=== PATIENT | male | born 1970 | race Two or more races ===

== ENCOUNTER 2017-05-05 17:48 | Emergency (ER) | payer SELFPAY ==
[~2017-05-05] VITALS: Ht 170.2 cm; Wt 99.9 kg
[2017-05-05 17:50] VITALS: BP 127/83
[2017-05-05] MEDS ORDERED: DEXAMETHASONE 4 MG TABLET PO ONE (18:30)
[2017-05-05] MEDS ORDERED: IBUPROFEN 200 MG TABLET PO ONE (18:30)
== END 2017-05-05 19:13 | disposition home or self-care (01) ==
LOC: ED 18:40
DX: J02.9 Acute pharyngitis, unspecified (principal)
CPT/HCPCS: 87081; 87880; 99284

== ENCOUNTER 2017-05-07 17:16 | Emergency (ER) | payer OTHER ==
[~2017-05-07] VITALS: Ht 170.2 cm; Wt 100.6 kg
[2017-05-07 17:17] VITALS: BP 111/73
[2017-05-07] MEDS ORDERED: HYDROcodone/APAP 5/325 TABLET ONE (17:54)
[2017-05-07] MEDS ORDERED: DEXAMETHASONE 4 MG TABLET ONE (17:54)
[2017-05-07] MEDS ORDERED: DEXAMETHASONE 4 MG TABLET PO ONE (19:00)
[2017-05-07] MEDS ORDERED: HYDROcodone/APAP 5/325 TABLET PO ONE (19:00)
== END 2017-05-07 18:34 | disposition home or self-care (01) ==
LOC: ED 17:52
DX: M54.2 Cervicalgia (principal)
CPT/HCPCS: 99283

== ENCOUNTER 2018-08-30 10:03 | Emergency (ER) | payer SELFPAY ==
[~2018-08-30] VITALS: Ht 170.2 cm; Wt 91.1 kg
--- NOTE | 2018-08-30 10:20 | NUR ---
NO ANSWER FROM TRIAGE
[2018-08-30 10:56] LABS: BASOPHILS # (AUTO) 0.06 x10^3/uL (0-0.1); BASOPHILS % (AUTO) 1 % (0-1); EOSINOPHILS # (AUTO) 0.08 x10^3/uL (0-0.4); EOSINOPHILS % (AUTO) 1 % (1-7); LYMPHOCYTES # (AUTO) 2.25 x10^3/uL (1-3.4); LYMPHOCYTES % (AUTO) 33 % (22-44); MD NO; MEAN CORPUSCULAR VOLUME 93.8 fL (81-97); MEAN PLATELET VOLUME 7.4 fL (7.4-10.4); MONOCYTES # (AUTO) 0.69 x10^3/uL (0.2-0.8); MONOCYTES % (AUTO) 10 % (2-9); NEUTROPHILS # (AUTO) 3.86 x10^3/uL (1.8-6.8); NEUTROPHILS % (AUTO) 56 % (42-75); PLATELET COUNT 282 x10^3/uL (130-400); RED BLOOD COUNT 4.95 x10^6/uL (4.38-5.82); RED CELL DISTRIBUTION WIDTH 14.9 % (9.4-14.8)
[2018-08-30 11:05] LABS: ANION GAP 7 mmol/L (5-15); CALCIUM 9.2 mg/dL (8.5-10.1); CHLORIDE 104 mmol/L (98-107); CREATININE 0.92 mg/dL (0.7-1.3)
--- NOTE | 2018-08-30 11:40 | NUR ---
Pt back from [place]: Was seen by [facility] & labs/rad complete. Pt here for 10 days of B flank pain & testicular pain x 2 days. Urine collected & sent, rates pain as 02/24. NAD at this time, sig. other @ BS.
[2018-08-30 11:55] LABS: MICROSCOPIC AUTO
[2018-08-30 11:58] LABS: CULTURE INDICATED? NO
--- NOTE | 2018-08-30 12:28 | NUR ---
Resting comfortably in bed, pt updated that CT has been ordered & is pending .
[2018-08-30] MEDS ORDERED: HYDROmorphone 2 MG/ML, 1ML IM PRN (13:30)
[2018-08-30] MEDS ORDERED: HYDROmorphone 2 MG/ML, 1ML ONE (13:35)
--- NOTE | 2018-08-30 13:40 | NUR ---
TO CT VIA [facility]
[2018-08-30 14:28] VITALS: BP 122/77
== END 2018-08-30 15:58 | disposition home or self-care (01) ==
LOC: ED 11:55
DX: N50.812 Left testicular pain (principal); L30.8 Other specified dermatitis
CPT/HCPCS: 36415; 74176; 76857; 76870; 80048; 81001; 82040; 85025; 93975; 96372; 99284; J1170